=== PATIENT | male | born 1950 | race Caucasian/White ===

== ENCOUNTER 2020-08-13 14:50 | Emergency (ER) | payer OTHER ==
[2020-08-13 15:09] VITALS: TEMP 98.5; BMI 33.0
[2020-08-13] MEDS ORDERED: LACTATED RINGERS SOLUTION 1,000 ML IV STA (17:24)
[2020-08-13] MEDS ORDERED: ACETAMINOPHEN 1000 MG/100 ML VIAL (NON FORMULARY) IVPB ONE (17:25)
[2020-08-13] MEDS ORDERED: ACETAMINOPHEN INJECTION 100 ML IVPB ONE (18:19)
[2020-08-13 19:02] LABS: BASO % 0.5 % (0-2.0); EOS % 2.7 % (0-4.5); HEMATOCRIT 41.9 % (35.4-49); HEMOGLOBIN 14.1 GM/dL (11.7-16.9); LYMPH % 30.9 % (8-40); MCHC 33.6 g/dl (32.0-35.9); MEAN CELL VOLUME 86.2 fl (80-96); MEAN PLT VOLUME 10.1 fl (7.5-11.1); MONO % 10.2 % (3.8-10.2); NEUT % 55.7 % (42.8-82.8); PLATELET COUNT 188 K/MM3 (134-434); RBC 4.86 M/mm3 (4.00-5.60); RDW 13.4 % (11.9-15.9); WHITE BLOOD COUNT 5.8 K/mm3 (4.0-10.0)
[2020-08-13 19:03] LABS: PH,URINE 5.5 (5.0-8.0); URINE APPEARANCE CLEAR; URINE BILIRUBIN NEGATIVE (NEGATIVE); URINE COLOR YELLOW; URINE GLUCOSE (UA) NEGATIVE (NEGATIVE); URINE KETONE NEGATIVE (NEGATIVE); URINE LEUK ESTERASE NEGATIVE (NEGATIVE); URINE NITRITE NEGATIVE (NEGATIVE); URINE PROTEIN NEGATIVE (NEGATIVE); URINE UROBILINOGEN 0.2 mg/dL (0.2-1.0)
[2020-08-13 19:21] LABS: CALCIUM 9.1 mg/dL (8.5-10.1)
[2020-08-13 19:22] LABS: ALBUMIN 3.9 g/dl (3.4-5.0); BLOOD UREA NITROGEN 16.5 mg/dL (7-18)
[2020-08-13 19:24] LABS: CREATININE 0.8 mg/dL (0.55-1.3)
[2020-08-13 19:26] LABS: BILIRUBIN,TOTAL 0.5 mg/dL (0.2-1); TOT PROT 6.9 g/dl (6.4-8.2)
[2020-08-13 20:04] VITALS: BP 166/92; PULSE 65
== END 2020-08-13 20:33 | disposition home or self-care (01) ==
LOC: JER 14:50
PROC: 3E033NZ Introduction of Analgesics, Hypnotics, Sedatives into Peripheral Vein, Percutaneous Approach (ICD-10-PCS; principal; 2020-08-13)
PROC: 3E0337Z Introduction of Electrolytic and Water Balance Substance into Peripheral Vein, Percutaneous Approach (ICD-10-PCS; 2020-08-13)
DX: R19.7 Diarrhea, unspecified (principal)
CPT/HCPCS: 36415; 80053; 81003; 83605; 83690; 85025; 87086; 99284-25; J0131

== ENCOUNTER 2022-01-08 11:10 | Emergency (ER) | payer OTHER ==
[2022-01-08 11:22] VITALS: BP 160/95; PULSE 80; RESP 18; TEMP 98; BMI 27.5
[2022-01-08 13:07] LABS: BASO % 0.7 % (0-2.0); EOS % 2.8 % (0-4.5); HEMATOCRIT 43.8 % (35.4-49); HEMOGLOBIN 14.6 GM/dL (11.7-16.9); LYMPH % 30.7 % (8-40); MCH 28.9 pg (25.7-33.7); MCHC 33.4 g/dl (32.0-35.9); MEAN CELL VOLUME 86.8 fl (80-96); MEAN PLT VOLUME 9.8 fl (7.5-11.1); MONO % 9.8 % (3.8-10.2); PLATELET COUNT 190 10^3/uL (134-434); RBC 5.04 M/mm3 (4.00-5.60); RDW 14.1 % (11.9-15.9); WHITE BLOOD COUNT 4.9 K/mm3 (4.0-10.0)
[2022-01-08 13:12] LABS: PH,URINE 5.5 (5.0-8.0); URINE APPEARANCE CLEAR; URINE BILIRUBIN NEGATIVE (NEGATIVE); URINE COLOR YELLOW; URINE GLUCOSE (UA) NEGATIVE (NEGATIVE); URINE KETONE NEGATIVE (NEGATIVE); URINE LEUK ESTERASE NEGATIVE (NEGATIVE); URINE NITRITE NEGATIVE (NEGATIVE); URINE PROTEIN NEGATIVE (NEGATIVE); URINE UROBILINOGEN 0.2 mg/dL (0.2-1.0)
[2022-01-08 13:13] LABS: INR 1.04 (0.83-1.09)
[2022-01-08 13:16] LABS: ACTIVATED PTT 32.6 SECONDS (25.2-36.5)
[2022-01-08 13:49] LABS: CALCIUM 9.9 mg/dL (8.5-10.1)
[2022-01-08 13:54] LABS: BILIRUBIN,TOTAL 0.5 mg/dL (0.2-1)
[2022-01-08 13:57] LABS: CREATININE 0.9 mg/dL (0.55-1.3)
== END 2022-01-08 18:15 | disposition home or self-care (01) ==
LOC: JER 11:10
DX: R31.9 Hematuria, unspecified (principal)
CPT/HCPCS: 36415; 74178-TC; 80053; 81003; 85025; 85610; 85730; 86850; 86900; 86901; 87086; 99284-25

== ENCOUNTER 2023-02-21 04:25 | Day surgery (SDC) | payer OTHER ==
[2023-02-19 11:56] VITALS: BMI 30.2
[2023-02-21 09:37] VITALS: TEMP 98.2
[2023-02-21 10:11] VITALS: RESP 20
[2023-02-21 10:13] VITALS: BP 105/58; PULSE 70
== END 2023-02-21 10:30 | disposition home or self-care (01) ==
LOC: JASU-ENDO 04:25
PROVIDERS: ATTEND Internal Medicine Gastroenterology
PROC: 0DJD8ZZ Inspection of Lower Intestinal Tract, Via Natural or Artificial Opening Endoscopic (ICD-10-PCS; principal; 2023-02-21 09:30)
DX: Z12.11 Encounter for screening for malignant neoplasm of colon (principal); K57.30 Diverticulosis of large intestine without perforation or abscess without bleeding; K64.8 Other hemorrhoids
CPT/HCPCS: 82962